=== PATIENT | female | born 1995 | race Asian ===

== ENCOUNTER 2017-11-22 14:47 | Inpatient (IN) | END 2017-11-27 16:55 | disposition home or self-care (01) | DRG 690 ==

== ENCOUNTER 2018-07-16 16:29 | Emergency (ER) | payer OTHER ==
[~2018-07-16] VITALS: Ht 157.5 cm; Wt 56.8 kg
[~2018-07-16 16:29] MED LIST: CIPR500T4 PO; TRAM50TA2 PO
[2018-07-16 16:34] VITALS: BP 144/79; PULSE 108; RESP 18; Ht 157.5 cm; Wt 56.8 kg
--- NOTE | 2018-07-16 17:15 | ERD ---
ER Documentation Chief Complaint Chief Complaint pt bib self with c/o pain approx 8 wks preg, HPI Patient presents with complaint of "pain and pulling "and abdomen times 2 weeks., With nausea, denies dysuria, states bowel movement today. Patient thinks that she may be although this has not been confirmed by blood or urine tests, states she thinks she is because she "feels something moving around in her stomach."Stating that she would like to terminate the today if she is . Vague LMP possibly June 09. G1 A1 P0. Denies chronic medical conditions, denies drug use. States she is having her kidney removed in August by unknown surgeon because she has a "kidney stone." Patient with flat affect, unreliable historian. ROS All systems reviewed and are negative except as per history of present illness. Medications Home Meds Active Scripts Ciprofloxacin Hcl* (Ciprofloxacin Hcl*) 500 Mg Tablet, 500 MG PO BID for 10 Days, #20 TAB Prov:COLT IVERSON NP 11/27/17 Tramadol HCl (Tramadol HCl) 50 Mg Tablet, 50 MG PO Q6H PRN for PAIN, #14 TAB Prov:REMY LOWERY 11/25/17 Allergies Allergies: Coded Allergies: No Known Allergies (Verified Allergy, Unknown, 11/22/17) PMhx/Soc History of Surgery: No Anesthesia Reaction: No Hx Neurological Disorder: No Hx Respiratory Disorders: No Hx Cardiac Disorders: No Hx Miscellaneous Medical Probl: Yes (1 FAILING KIDNEY) Hx Alcohol Use: No Hx Substance Use: No Hx Tobacco Use: No Smoking Status: Never smoker Physical Exam Vitals Vital Signs Date Temp Pulse Resp B/P (MAP) Pulse Ox O2 O2 Flow FiO2 Time Delivery Rate 07/16/18 98.6 108 18 144/79 99 16:34 (100) Physical Exam Const: No acute distress Head: Atraumatic Eyes: Normal Conjunctiva, PERRL ENT: Normal External Ears, Nose and Mouth. Pharynx pink without lesions or exudate, tonsils +1 Neck: Full range of motion. No meningismus. Resp: Clear to auscultation bilaterally Cardio: Regular rate and rhythm, no murmurs Abd: Soft, non tender, non distended. Normal bowel sounds Skin: No petechiae or rashes Back: No midline or flank tenderness Ext: No cyanosis, or edema Neur: Awake and alert Psych: Normal Mood and Affect Result Diagram: 07/16/18 1723 07/16/18 1723 Results 24 hrs Laboratory Tests Test 07/16/18 17:23 White Blood Count 9.8 10^3/ul Red Blood Count 4.58 10^6/ul Hemoglobin 13.2 g/dl Hematocrit 40.7 % Mean Corpuscular Volume 88.9 fl Mean Corpuscular Hemoglobin 28.8 pg Mean Corpuscular Hemoglobin Concent 32.4 g/dl Red Cell Distribution Width 13.1 % Platelet Count 344 10^3/UL Mean Platelet Volume 8.3 fl Immature Granulocytes % 0.200 % Neutrophils % 65.9 % Lymphocytes % 25.9 % Monocytes % 6.8 % Eosinophils % 0.7 % Basophils % 0.5 % Nucleated Red Blood Cells % 0.0 /100WBC Immature Granulocytes # 0.020 10^3/ul Neutrophils # 6.4 10^3/ul Lymphocytes # 2.5 10^3/ul Monocytes # 0.7 10^3/ul Eosinophils # 0.1 10^3/ul Basophils # 0.1 10^3/ul Nucleated Red Blood Cells # 0.0 10^3/ul Urine Color YELLOW Urine Clarity CLEAR Urine pH 6.0 Urine Specific Henning 1.010 Urine Ketones NEGATIVE mg/dL Urine Nitrite NEGATIVE mg/dL Urine Bilirubin NEGATIVE mg/dL Urine Urobilinogen NEGATIVE mg/dL Urine Leukocyte Esterase 1+ Shannan/ul Urine Microscopic RBC 3 /HPF Urine Microscopic WBC 30 /HPF Urine Squamous Epithelial Cells FEW /HPF Urine Bacteria FEW /HPF Urine Hemoglobin NEGATIVE mg/dL Urine Glucose NEGATIVE mg/dL Urine Total Protein NEGATIVE mg/dl Sodium Level 139 mmol/L Potassium Level 4.5 mmol/L Chloride Level 103 mmol/L Carbon Dioxide Level 25 mmol/L Anion Gap 11 Blood Urea Nitrogen 11 mg/dl Creatinine 0.66 mg/dl Est Glomerular Filtrat Rate mL/min > 60 mL/min Glucose Level 97 mg/dl Calcium Level 10.6 mg/dl Total Bilirubin 0.1 mg/dl Direct Bilirubin 0.00 mg/dl Indirect Bilirubin 0.1 mg/dl Aspartate Amino Transf (AST/SGOT) 20 IU/L Alanine Aminotransferase (ALT/SGPT) 16 IU/L Alkaline Phosphatase 89 IU/L Total Protein 9.3 g/dl Albumin 4.6 g/dl Globulin 4.70 g/dl Albumin/Globulin Ratio 0.97 Lipase 67 U/L Serum HCG, Qualitative NEGATIVE Current Medications Medications Dose Sig/Romina Start Time Status Last (Trade) Ordered Route PRN Stop Time Admin Dose Reason Admin 40 ml ONCE ONCE 07/16/18 DC 07/16/18 Miscellaneous PO 19:00 19:05 Medication 07/16/18 19:01 (Gi Cocktail (2)) Procedures/MDM This is a 23-year-old female patient who comes in with concern of abdominal pain with . Serum hCG is negative for . Lab work is negative for liver or kidney dysfunction, anemia, infection, any concern for sepsis or life- threatening infection. Patient has been stable during ED course and appropriate for follow-up with primary care physician. Departure Diagnosis: Primary Impression: Abdominal pain Condition: Stable Referrals: [facility] Additional Instructions: Thank you very much for allowing us to participate in your care. Your health and safety is our top priority at [facility]. Call your primary care doctor TOMORROW for an appointment during the next 2-4 days and bring all the information and medications prescribed. Have prescriptions filled and follow precisely the directions on the label. If the symptoms get worse and your provider is unavailable, return to the Emergency Department immediately. Follow-up with your primary care provider for further evaluation. Bring laboratory results from today's visit. TWIN RENAE NP Jul 16, 2018 17:15
[2018-07-16] MEDS ORDERED: LIDOCAINE/MYLANTA 40 ML BTL PO ONE (19:00)
== END 2018-07-16 19:20 | disposition home or self-care (01) ==
LOC: FTE 16:29
DX: R10.9 Unspecified abdominal pain (principal); R10.2 Pelvic and perineal pain
CPT/HCPCS: 80053; 81001; 83690; 84703; 85025; Z7610; 99283